=== PATIENT | female | born 1980 | race American Indian/Alaskan Native ===

== ENCOUNTER 2016-12-01 10:54 | Inpatient (IN) | payer OTHER ==
[~2016-12-01] VITALS: Ht 172.7 cm; Wt 126.9 kg
[2016-12-01] MEDS ORDERED: ACETAMINOPHEN 325 MG TABLET ONE (12:21)
[2016-12-01] MEDS ORDERED: KETOROLAC 30 MG/1 ML ONE (12:21)
[2016-12-01] MEDS ORDERED: SODIUM CHLORIDE FLUSH 10ML SYR IVF ONE (12:30)
[2016-12-01] MEDS ORDERED: KETOROLAC 30 MG/1 ML IVPush ONE (12:30)
[2016-12-01] MEDS ORDERED: ACETAMINOPHEN 325 MG TABLET PO ONE (12:30)
[2016-12-01] MEDS ORDERED: SODIUM CHLORIDE 0.9% 1,000ML IVBOLUS ONE (12:30)
[2016-12-01 12:58] LABS: HEMOGLOBIN 12.6 g/dL (11.7-16.4)
[2016-12-01 13:11] LABS: BLOOD UREA NITROGEN 9 mg/dL (7-18)
[2016-12-01 13:16] LABS: IS PT STATUS REG ER OR PRE ER? YES
[2016-12-01 13:20] LABS: DIFF TOTAL CELLS COUNTED 100 CELL DIFF
[2016-12-01 13:21] LABS: VERIFY COUNTS? YES
[2016-12-01] MEDS ORDERED: OMNIPAQUE 350 MG/ML, 100ML BOTTLE ONE (14:01)
[2016-12-01] MEDS ORDERED: VANCOMYCIN PMX 1GM/200ML 200 ML IV ONE (15:00)
[2016-12-01] MEDS ORDERED: CEFTRIAXONE PMX 1GM/50ML 50 ML IV ONE (15:00)
[2016-12-01] MEDS ORDERED: CEFTRIAXONE PMX 1GM/50ML 50 ML ONE (15:19)
[2016-12-01] MEDS: SODIUM CHLORIDE 0.9% 1,000 ML IV SCH (16:01)
[2016-12-01] MEDS ORDERED: GUAIFENESIN/DM 200-20MG, 10ML UDC PO PRN (16:30)
[2016-12-01] MEDS ORDERED: LABETALOL 5MG/ML, 20ML IV PRN (16:30)
[2016-12-01] MEDS: ENOXAPARIN 40 MG/0.4 ML SQ SCH (16:30)
[2016-12-01] MEDS ORDERED: ONDANSETRON ODT 4 MG PO PRN (16:30)
[2016-12-01 16:35] VITALS: BP 116/77
[2016-12-01 17:19] LABS: IS PT STATUS REG ER OR PRE ER? NO
[2016-12-01] MEDS: HYDROcodone/APAP 5/325 TABLET PO PRN ×2 (17:40→21:43)
[2016-12-01 18:05] LABS: RAPID INFLUENZA A Negative (Negative); RAPID INFLUENZA B Negative (Negative)
[2016-12-01 18:17] LABS: HIV 1&2 ANTIBODY SCREEN Nonreactive (Nonreactive); HIV-1 p24 ANTIGEN Nonreactive (Nonreactive)
[2016-12-01 19:11] VITALS: BP 106/68
[2016-12-01] MEDS: PANTOPRAZOLE 40 MG IV IVP SCH (21:12)
[2016-12-01] MEDS: DOXYCYCLINE 100MG TABLET PO SCH (21:12)
[2016-12-01 22:54] LABS: IS PT STATUS REG ER OR PRE ER? NO
[2016-12-02] MEDS: SODIUM CHLORIDE 0.9% 1,000 ML IV SCH ×2 (02:07→18:30)
[2016-12-02 02:59] VITALS: BP 96/50
[2016-12-02 05:11] LABS: HEMOGLOBIN 11.7 g/dL (11.7-16.4)
[2016-12-02 05:16] LABS: ASPARTATE AMINO TRANSFERASE 8 U/L (15-37); BLOOD UREA NITROGEN 12 mg/dL (7-18)
[2016-12-02 06:14] LABS: DIFF TOTAL CELLS COUNTED 100 CELL DIFF
[2016-12-02 07:42] VITALS: BP 100/66
[2016-12-02 07:59] LABS: VERIFY COUNTS? YES
[2016-12-02] MEDS: CEFTRIAXONE PMX 2GM/50ML 50 ML IV SCH (08:27)
[2016-12-02] MEDS: PANTOPRAZOLE 40 MG IV IVP SCH ×2 (08:27→20:45)
[2016-12-02] MEDS: HYDROcodone/APAP 5/325 TABLET PO PRN ×3 (08:27→22:41)
[2016-12-02] MEDS ORDERED: POTASSIUM CHLORIDE 20 MEQ TAB.ER.PRT PO ONE (08:30)
[2016-12-02] MEDS: ONDANSETRON 2MG/ML, 2ML IVP PRN ×2 (10:09→22:22)
[2016-12-02] MEDS: DOXYCYCLINE 100MG TABLET PO SCH ×2 (10:10→20:45)
[2016-12-02 16:20] VITALS: BP 110/65
[2016-12-02] MEDS: ENOXAPARIN 40 MG/0.4 ML SQ SCH (18:31)
[2016-12-02 20:10] VITALS: BP 120/64
[2016-12-03 01:36] VITALS: BP 106/65
[2016-12-03] MEDS: SODIUM CHLORIDE 0.9% 1,000 ML IV SCH ×2 (02:59→18:20)
[2016-12-03] MEDS: HYDROcodone/APAP 5/325 TABLET PO PRN ×2 (02:59→18:20)
[2016-12-03 06:18] LABS: HEMOGLOBIN 10.9 g/dL (11.7-16.4)
[2016-12-03 06:33] LABS: ASPARTATE AMINO TRANSFERASE 7 U/L (15-37); BLOOD UREA NITROGEN 7 mg/dL (7-18)
[2016-12-03 06:39] VITALS: BP 110/70
[2016-12-03 06:56] LABS: DIFF TOTAL CELLS COUNTED 100 CELL DIFF
[2016-12-03 06:57] LABS: VERIFY COUNTS? YES
[2016-12-03] MEDS ORDERED: FENTANYL PF 100 MCG/2ML ONE (08:07)
[2016-12-03] MEDS ORDERED: MIDAZOLAM 1 MG/ML, 5ML ONE ×2 (08:08)
[2016-12-03] MEDS: PANTOPRAZOLE 40 MG IV IVP SCH ×2 (08:10→21:40)
[2016-12-03] MEDS: CEFTRIAXONE PMX 2GM/50ML 50 ML IV SCH (08:11)
[2016-12-03] MEDS ORDERED: LIDOCAINE 2%, 20ML ONE (10:30)
[2016-12-03] MEDS ORDERED: LIDOCAINE GEL 2%, 5ML ONE (10:30)
[2016-12-03 10:59] VITALS: BP 151/93
[2016-12-03 12:01] VITALS: BP 143/88
[2016-12-03 12:45] VITALS: BP 142/87
[2016-12-03] MEDS: ONDANSETRON 2MG/ML, 2ML IVP PRN (13:24)
[2016-12-03] MEDS: DOXYCYCLINE 100MG TABLET PO SCH ×2 (14:21→21:40)
[2016-12-03] MEDS: ENOXAPARIN 40 MG/0.4 ML SQ SCH (16:30)
[2016-12-03 19:33] VITALS: BP 125/73
[2016-12-04 01:50] VITALS: BP 119/79
[2016-12-04] MEDS: SODIUM CHLORIDE 0.9% 1,000 ML IV SCH ×3 (02:00→17:37)
[2016-12-04] MEDS: ACETAMINOPHEN 325 MG TABLET PO PRN ×2 (02:08→08:49)
[2016-12-04 06:42] VITALS: BP 150/90
[2016-12-04] MEDS: PANTOPRAZOLE 40 MG IV IVP SCH ×2 (08:48→20:49)
[2016-12-04] MEDS: DOXYCYCLINE 100MG TABLET PO SCH ×2 (08:48→20:49)
[2016-12-04] MEDS: CEFTRIAXONE PMX 2GM/50ML 50 ML IV SCH (08:49)
[2016-12-04] MEDS: BUTALB/APAP/CAFFEINE 50MG/325MG/40MG PO PRN ×2 (11:50→18:05)
[2016-12-04 13:44] VITALS: BP 135/78
[2016-12-04] MEDS: ENOXAPARIN 40 MG/0.4 ML SQ SCH (17:38)
[2016-12-04] MEDS: PANTOPROZOLE 40MG TABLET PO SCH (17:43)
[2016-12-04 19:15] VITALS: BP 149/91
[2016-12-04] MEDS: HYDROcodone/APAP 5/325 TABLET PO PRN (19:19)
[2016-12-05 02:20] VITALS: BP 135/83
[2016-12-05] MEDS: SODIUM CHLORIDE 0.9% 1,000 ML IV SCH (03:13)
[2016-12-05 05:33] LABS: HEMOGLOBIN 10.9 g/dL (11.7-16.4)
[2016-12-05 05:41] LABS: BLOOD UREA NITROGEN 3 mg/dL (7-18)
[2016-12-05 05:45] LABS: ASPARTATE AMINO TRANSFERASE 12 U/L (15-37)
[2016-12-05 07:22] VITALS: BP 137/83
[2016-12-05] MEDS ORDERED: POTASSIUM CHLORIDE 20 MEQ PACKET PO ONE (08:00)
[2016-12-05] MEDS: PANTOPRAZOLE 40 MG IV IVP SCH (08:36)
[2016-12-05] MEDS: DOXYCYCLINE 100MG TABLET PO SCH (08:47)
[2016-12-05] MEDS: PANTOPROZOLE 40MG TABLET PO SCH (08:47)
[2016-12-05] MEDS: CEFTRIAXONE PMX 2GM/50ML 50 ML IV SCH (08:48)
[2016-12-05] MEDS ORDERED: ACET325T14 PO (10:01)
[2016-12-05] MEDS ORDERED: CEFD300C2 PO (10:06)
[2016-12-05] MEDS ORDERED: DOXY100T PO (10:06)
[2016-12-05] MEDS ORDERED: MOME13HF2 INH (10:08)
[2016-12-05] MEDS ORDERED: ALBU8.5H3 INH (10:08)
[2016-12-05] MEDS ORDERED: POTASSIUM CHLORIDE 20 MEQ TAB.ER.PRT PO ONE (11:00)
[2016-12-05] MEDS: BUTALB/APAP/CAFFEINE 50MG/325MG/40MG PO PRN (11:17)
== END 2016-12-05 14:00 | disposition home or self-care (01) | DRG 853 ==
LOC: ED 14:36 → EDIP 14:40 → 4WST 15:41
PROVIDERS: ADMIT Internal Medicine; ATTEND Internal Medicine
PROC: 0BBC8ZX Excision of Right Upper Lung Lobe, Via Natural or Artificial Opening Endoscopic, Diagnostic (ICD-10-PCS; principal; 2016-12-03)
DX: A41.9 Sepsis, unspecified organism (principal); J96.01 Acute respiratory failure with hypoxia; J18.9 Pneumonia, unspecified organism; E43 Unspecified severe protein-calorie malnutrition; E87.1 Hypo-osmolality and hyponatremia; Z68.41 Body mass index [BMI] 40.0-44.9, adult; C34.11 Malignant neoplasm of upper lobe, right bronchus or lung; E78.5 Hyperlipidemia, unspecified; E87.6 Hypokalemia; F17.210 Nicotine dependence, cigarettes, uncomplicated; E66.01 Morbid (severe) obesity due to excess calories; R73.9 Hyperglycemia, unspecified; I10 Essential (primary) hypertension; D64.9 Anemia, unspecified; J45.909 Unspecified asthma, uncomplicated; Z82.49 Family history of ischemic heart disease and other diseases of the circulatory system; Z83.3 Family history of diabetes mellitus; Z87.01 Personal history of pneumonia (recurrent)
CPT/HCPCS: 31622; 31623; 31624; 31628; 36415; 71020; 71275; 80048; 80053; 80076; 82040; 83605; 83615; 83690; 83735; 83880; 84100; 84145; 84439; 84443; 84484; 85025; 85379; 85610; 86703; 87040; 87081; 87400; 87880; 87899; 88104; 88112; 88305; 93005; J0696; J1650; J1885; J2250; J2405; J3010; J3370; J3490; Q9967; C9113; G0435; J7030

== ENCOUNTER 2017-01-31 22:34 | Inpatient (IN) | payer SELFPAY ==
[~2017-01-31] VITALS: Ht 172.7 cm; Wt 113.6 kg
[~2017-01-31 22:34] MED LIST: ACET325T14 PO; ALBU8.5H3 INH; CEFD300C37 PO; DOXY100T PO; MOME13HF2 INH
[2017-01-31] MEDS ORDERED: SODIUM CHLORIDE 0.9% 1,000ML IVBOLUS ONE (23:00)
[2017-01-31] MEDS ORDERED: ONDANSETRON 2MG/ML, 2ML IVP ONE (23:00)
[2017-01-31] MEDS ORDERED: MORPHINE SULFATE 4 MG/ML, 1ML IVPush PRN (23:00)
[2017-01-31] MEDS ORDERED: SODIUM CHLORIDE FLUSH 10ML SYR IVF ONE (23:00)
[2017-01-31] MEDS ORDERED: ONDANSETRON 2MG/ML, 2ML ONE (23:26)
[2017-01-31] MEDS ORDERED: MORPHINE SULFATE 4 MG/ML, 1ML ONE (23:26)
[2017-01-31 23:45] LABS: BLOOD UREA NITROGEN 10 mg/dL (7-18)
[2017-02-01] MEDS ORDERED: CEFTRIAXONE PMX 1GM/50ML 50 ML ONE (00:51)
[2017-02-01] MEDS ORDERED: SODIUM CHLORIDE 0.9% 1,000ML IVBOLUS ONE (01:00)
[2017-02-01] MEDS ORDERED: CEFTRIAXONE PMX 1GM/50ML 50 ML IV ONE (01:00)
[2017-02-01] MEDS ORDERED: VANCOMYCIN PER PHARMACY IV ONE (01:00)
[2017-02-01] MEDS ORDERED: VANCOMYCIN 2,000 MG in SODIUM CHLORIDE 0.9% 500 ML IV ONE (01:00)
[2017-02-01] MEDS ORDERED: OMNIPAQUE 350 MG/ML, 100ML BOTTLE ONE (01:10)
[2017-02-01] MEDS ORDERED: AZITHROMYCIN 500 MG in SODIUM CHLORIDE 0.9% 250 ML IV ONE (01:30)
[2017-02-01] MEDS ORDERED: SODIUM CHLORIDE 0.9% 1,000 ML IV ONE (01:42)
[2017-02-01] MEDS ORDERED: ONDANSETRON 2MG/ML, 2ML IVPush PRN (03:30)
[2017-02-01] MEDS ORDERED: LORazepam 2 MG/ML, 1ML IVPush PRN (03:30)
[2017-02-01] MEDS ORDERED: POTASSIUM CHLORIDE 20 MEQ TAB.ER.PRT PO ONE (03:30)
[2017-02-01] MEDS ORDERED: morphine SULFATE 10 MG/ML, 1ML IVPush PRN (03:30)
[2017-02-01] MEDS ORDERED: PHARMACOKINETIC MONITORING MC PRN (03:30)
[2017-02-01] MEDS ORDERED: NICOTINE 14MG/24 HR PATCH.TD24 TD SCH (03:30)
[2017-02-01] MEDS ORDERED: HYDROcodone/APAP 5/325 TABLET PO PRN (03:30)
[2017-02-01] MEDS ORDERED: VANCOMYCIN PER PHARMACY MC PRN (03:30)
[2017-02-01] MEDS ORDERED: ENOXAPARIN 40 MG/0.4 ML SQ SCH (03:30)
[2017-02-01] MEDS: NS + 20MEQ KCL 1,000 ML IV SCH ×3 (04:11→23:06)
[2017-02-01] MEDS: PIPERACILLIN/TAZO/PMX 3.375GM 50 ML IV SCH ×3 (04:11→20:00)
[2017-02-01] MEDS: GUAIFENESIN 200 MG TABLET PO SCH ×3 (06:00→16:00)
[2017-02-01] MEDS: SENNA/DOCUSATE TABLET PO SCH (09:00)
[2017-02-01] MEDS: FAMOTIDINE 20 MG TABLET PO SCH ×2 (09:00→21:00)
[2017-02-01] MEDS: VANCOMYCIN 2,000 MG in SODIUM CHLORIDE 0.9% 500 ML IV SCH (14:00)
[2017-02-02] MEDS: VANCOMYCIN 2,000 MG in SODIUM CHLORIDE 0.9% 500 ML IV SCH ×2 (02:00→14:00)
[2017-02-02] MEDS ORDERED: ALBUTEROL/IPRATROPIUM 2.5MG/0.5MG, 3 ML ONE (03:51)
[2017-02-02 07:06] VITALS: BP 114/57
[2017-02-02] MEDS: GUAIFENESIN 200 MG TABLET PO SCH (09:00)
[2017-02-02] MEDS: FAMOTIDINE 20 MG TABLET PO SCH (09:00)
[2017-02-02] MEDS: SENNA/DOCUSATE TABLET PO SCH (09:00)
[2017-02-02] MEDS: NS + 20MEQ KCL 1,000 ML IV SCH (11:40)
[2017-02-02] MEDS: PIPERACILLIN/TAZO/PMX 3.375GM 50 ML IV SCH (13:00)
[2017-02-02 13:30] VITALS: BP 133/89
[2017-02-02] MEDS ORDERED: ALBUTEROL/IPRATROPIUM 2.5MG/0.5MG, 3 ML NPPB PRN (14:30)
[2017-02-02] MEDS ORDERED: ACETAMINOPHEN 325 MG TABLET PO PRN (14:30)
[2017-02-02] MEDS ORDERED: PIPERACILLIN/TAZO/PMX 3.375GM 50 ML ONE (20:21)
== END 2017-02-02 16:45 | disposition left against medical advice (07) | DRG 871 ==
LOC: ED 02-01 00:49 → EDIP 02-01 01:43 → 4EST 02-01 02:45 → UNDODISIN 02-02 16:40 → EDIP 02-02 16:45
PROVIDERS: ADMIT Internal Medicine; ATTEND Internal Medicine
DX: A41.9 Sepsis, unspecified organism (principal); J18.9 Pneumonia, unspecified organism
CPT/HCPCS: 36415; 71020; 71275; 80048; 82040; 83036; 83605; 84145; 85025; 85651; 86140; 87040; 93005; 94640; J0696; J2405; J2543; J3370; J3480; Q9967; J7030; J7040

== ENCOUNTER 2017-02-02 18:22 | Inpatient (IN) | payer OTHER ==
[~2017-02-02] VITALS: Ht 172.7 cm; Wt 126.0 kg
[2017-02-02] MEDS ORDERED: SODIUM CHLORIDE 0.9% 1,000 ML IV ONE (18:39)
[2017-02-02] MEDS ORDERED: SODIUM CHLORIDE 0.9% 1,000ML IVBOLUS ONE (19:00)
[2017-02-02] MEDS ORDERED: ACETAMINOPHEN 500 MG TABLET PO ONE (19:00)
[2017-02-02] MEDS ORDERED: ACETAMINOPHEN 500 MG TABLET ONE (19:09)
[2017-02-02 19:21] LABS: BLOOD UREA NITROGEN 6 mg/dL (7-18)
[2017-02-02] MEDS ORDERED: VANCOMYCIN 2,000 MG in SODIUM CHLORIDE 0.9% 500 ML IV ONE (20:00)
[2017-02-02] MEDS ORDERED: VANCOMYCIN PER PHARMACY MC PRN ×2 (20:00→21:00)
[2017-02-02] MEDS ORDERED: PIPERACILLIN/TAZO 3.375 GM in SODIUM CHLORIDE 0.9% 50 ML IV ONE (20:00)
[2017-02-02] MEDS ORDERED: DOCUSATE 100 MG CAPSULE PO PRN (21:00)
[2017-02-02] MEDS ORDERED: POLYETHYLENE GLYCOL 17 GM PACKET PO PRN (21:00)
[2017-02-02] MEDS ORDERED: TRAZODONE 50MG TABLET PO PRN (21:00)
[2017-02-02] MEDS ORDERED: BISACODYL 10 MG SUPP PR PRN (21:00)
[2017-02-02] MEDS ORDERED: LABETALOL 5MG/ML, 20ML IVPush PRN (21:00)
[2017-02-02] MEDS ORDERED: ACETAMINOPHEN 325 MG TABLET PO PRN (21:00)
[2017-02-02] MEDS ORDERED: ONDANSETRON ODT 4 MG PO PRN (21:00)
[2017-02-02] MEDS ORDERED: ALBUTEROL SULFATE 2.5 MG/3 ML NPPB PRN (22:00)
[2017-02-02 22:40] VITALS: BP 121/72
[2017-02-02] MEDS: SODIUM CHLORIDE 0.9% 1,000 ML IV SCH (23:16)
[2017-02-02] MEDS: ENOXAPARIN 40 MG/0.4 ML SQ SCH (23:22)
[2017-02-02] MEDS: NICOTINE 14MG/24 HR PATCH.TD24 TD SCH (23:23)
[2017-02-02] MEDS ORDERED: PHARMACOKINETIC MONITORING MC PRN (23:30)
[2017-02-03 02:00] VITALS: BP 147/91
[2017-02-03] MEDS: PIPERACILLIN/TAZO/PMX 3.375GM 50 ML IV SCH ×2 (02:46→08:38)
[2017-02-03] MEDS: SODIUM CHLORIDE 0.9% 1,000 ML IV SCH ×3 (06:03→20:49)
[2017-02-03 07:08] LABS: BLOOD UREA NITROGEN 4 mg/dL (7-18)
[2017-02-03 07:12] LABS: ASPARTATE AMINO TRANSFERASE 9 U/L (15-37)
[2017-02-03] MEDS: THIAMINE 100MG TABLET PO SCH (08:38)
[2017-02-03] MEDS: FOLIC ACID 1 MG TABLET PO SCH (08:38)
[2017-02-03 09:00] VITALS: BP 128/76
[2017-02-03] MEDS ORDERED: VANCOMYCIN 2,300 MG in SODIUM CHLORIDE 0.9% 500 ML IV SCH (09:00)
[2017-02-03 14:11] VITALS: BP 121/72
[2017-02-03 14:29] LABS: DAU SCREEN DISCLAIMER
[2017-02-03] MEDS: DOXYCYCLINE 100 MG in DEXTROSE 5% 250 ML IV SCH (14:50)
[2017-02-03] MEDS ORDERED: HYDROcodone/APAP 5/325 TABLET PO PRN (16:30)
[2017-02-03 19:13] VITALS: BP 121/78
[2017-02-03] MEDS: NICOTINE 14MG/24 HR PATCH.TD24 TD SCH (20:49)
[2017-02-03] MEDS: ENOXAPARIN 40 MG/0.4 ML SQ SCH (20:49)
[2017-02-04 01:02] VITALS: BP 134/82
[2017-02-04] MEDS: DOXYCYCLINE 100 MG in DEXTROSE 5% 250 ML IV SCH (02:18)
[2017-02-04] MEDS: SODIUM CHLORIDE 0.9% 1,000 ML IV SCH ×2 (02:18→07:56)
[2017-02-04] MEDS ORDERED: CEFTRIAXONE PMX 2GM/50ML 50 ML IV SCH (07:00)
[2017-02-04 07:01] LABS: BLOOD UREA NITROGEN 2 mg/dL (7-18)
[2017-02-04 07:32] VITALS: BP 125/66
[2017-02-04] MEDS: THIAMINE 100MG TABLET PO SCH (09:02)
[2017-02-04] MEDS: FOLIC ACID 1 MG TABLET PO SCH (09:02)
[2017-02-04] MEDS ORDERED: SODIUM CHLORIDE 0.9% 1,000 ML IV SCH ×2 (09:15→20:50)
[2017-02-04] MEDS ORDERED: DOXY100T PO (12:51)
[2017-02-04] MEDS ORDERED: CEFD300C37 PO (12:51)
== END 2017-02-04 13:50 | disposition home or self-care (01) | DRG 871 ==
LOC: ED 20:00 → EDIP 20:12 → 4WST 22:51
PROVIDERS: ADMIT Internal Medicine; ATTEND Internal Medicine
DX: A41.9 Sepsis, unspecified organism (principal); J96.00 Acute respiratory failure, unspecified whether with hypoxia or hypercapnia; J18.9 Pneumonia, unspecified organism; E87.1 Hypo-osmolality and hyponatremia; Z68.41 Body mass index [BMI] 40.0-44.9, adult; E88.09 Other disorders of plasma-protein metabolism, not elsewhere classified; E66.9 Obesity, unspecified; F10.10 Alcohol abuse, uncomplicated; F17.210 Nicotine dependence, cigarettes, uncomplicated; I10 Essential (primary) hypertension; R65.20 Severe sepsis without septic shock; Z82.49 Family history of ischemic heart disease and other diseases of the circulatory system; Z91.14 Patient's other noncompliance with medication regimen; Z80.9 Family history of malignant neoplasm, unspecified; Z87.01 Personal history of pneumonia (recurrent)
CPT/HCPCS: 36415; 71010; 80048; 80053; 80307; 82040; 83605; 83735; 84145; 84443; 85025; 87040; 93005; 96365; J0696; J2543; J3370; J7060; J7030; J7040

== ENCOUNTER → 2017-05-27 | Outpatient (CLI) | payer MEDICAID, OTHER ==
[~2017-05-27] MED LIST changes: -ALBU8.5H3 INH; +ALBU8.5H8 INH
== END | disposition home or self-care (01) ==
LOC: RAD 14:08
PROVIDERS: ATTEND Internal Medicine Critical Care Medicine
DX: R91.8 Other nonspecific abnormal finding of lung field (principal); M25.78 Osteophyte, vertebrae
CPT/HCPCS: 71250

== ENCOUNTER 2017-06-23 16:52 | Emergency (ER) | payer MEDICAID ==
[~2017-06-23] VITALS: Ht 172.7 cm; Wt 120.3 kg
[2017-06-23 17:08] VITALS: BP 140/90
== END 2017-06-23 19:02 | disposition home or self-care (01) ==
LOC: ED 18:30
DX: R05 Cough (principal); I10 Essential (primary) hypertension
CPT/HCPCS: 71020; 93005; 99284

== ENCOUNTER 2017-06-27 02:55 | Inpatient (IN) | payer MEDICAID ==
[~2017-06-27] VITALS: Ht 172.7 cm; Wt 106.6 kg
[2017-06-27] MEDS ORDERED: ONDANSETRON 2MG/ML, 2ML IVP ONE (03:30)
[2017-06-27] MEDS ORDERED: SODIUM CHLORIDE 0.9% 1,000ML IVBOLUS ONE ×2 (03:30→05:00)
[2017-06-27] MEDS ORDERED: SODIUM CHLORIDE FLUSH 10ML SYR IVF ONE (03:30)
[2017-06-27] MEDS ORDERED: ONDANSETRON 2MG/ML, 2ML ONE (03:38)
[2017-06-27 03:48] LABS: HEMATOCRIT 41.1 % (34.6-47.8); HEMOGLOBIN 13.6 g/dL (11.7-16.4); WHITE BLOOD COUNT 15.9 x10^3/uL (3.4-10)
[2017-06-27 04:00] LABS: BLOOD UREA NITROGEN 15 mg/dL (7-18)
[2017-06-27] MEDS ORDERED: CEFTRIAXONE PMX 1GM/50ML 50 ML ONE (04:10)
[2017-06-27] MEDS ORDERED: morphine SULFATE 10 MG/ML, 1ML IV ONE (04:30)
[2017-06-27] MEDS ORDERED: AZITHROMYCIN 500 MG in SODIUM CHLORIDE 0.9% 250 ML IV ONE (04:30)
[2017-06-27] MEDS ORDERED: CEFTRIAXONE PMX 1GM/50ML 50 ML IV ONE (04:30)
[2017-06-27] MEDS ORDERED: morphine SULFATE 10 MG/ML, 1ML ONE (04:37)
[2017-06-27] MEDS ORDERED: GLUCAGON 1 MG IM PRN (05:00)
[2017-06-27] MEDS ORDERED: SODIUM CHLORIDE 0.9% 1,000ML IV ONE (05:00)
[2017-06-27] MEDS ORDERED: VANCOMYCIN PER PHARMACY IV SCH (05:00)
[2017-06-27] MEDS ORDERED: PHARMACY MAY ADJ FOR RENAL FX MC SCH (05:00)
[2017-06-27] MEDS ORDERED: ONDANSETRON ODT 4 MG PO PRN (05:00)
[2017-06-27] MEDS ORDERED: DEXTROSE 50%, 50ML SYRINGE IVPush PRN (05:00)
[2017-06-27] MEDS: SODIUM CHLORIDE 0.9% 1,000 ML IV SCH ×3 (05:00→18:31)
[2017-06-27] MEDS ORDERED: DEXTROSE 4 GM TAB.CHEW PO PRN (05:00)
[2017-06-27] MEDS ORDERED: ACETAMINOPHEN 325 MG TABLET PO PRN (05:00)
[2017-06-27 05:25] LABS: ABG COLLECTION SITE LEFT RADIAL; COLLATERAL CIRCULATION TESTING NORMAL
[2017-06-27] MEDS: ALBUTEROL SULFATE INH SCH ×4 (05:53→21:00)
[2017-06-27] MEDS ORDERED: PHARMACOKINETIC CONSULTATION MC ONE (06:00)
[2017-06-27] MEDS ORDERED: PHARMACOKINETIC MONITORING MC PRN (06:00)
[2017-06-27] MEDS: PIPERACILLIN/TAZO/PMX 4.5GM 100 ML IVPB SCH ×2 (06:06→13:44)
[2017-06-27] MEDS ORDERED: OMNIPAQUE 350 MG/ML, 100ML BOTTLE ONE (06:18)
[2017-06-27 06:19] VITALS: BP 143/99
[2017-06-27] MEDS ORDERED: ALBUTEROL SULFATE 2.5 MG/3 ML ONE (06:27)
[2017-06-27] MEDS: ALBUTEROL SULFATE 2.5 MG/3 ML NPPB SCH ×4 (06:42→20:00)
[2017-06-27 06:50] VITALS: BP 125/74
[2017-06-27] MEDS: FLUTICASONE/VILANTEROL 100-25MCG/INH INH SCH (09:00)
[2017-06-27] MEDS: ENOXAPARIN 40 MG/0.4 ML SQ SCH (10:32)
[2017-06-27] MEDS: morphine SULFATE 10 MG/ML, 1ML IV PRN (10:33)
[2017-06-27] MEDS: SODIUM CHLORIDE FLUSH 10ML SYR IVF SCH ×2 (10:33→21:17)
[2017-06-27] MEDS ORDERED: KETOROLAC 30 MG/1 ML IM ONE (11:30)
[2017-06-27] MEDS ORDERED: KETOROLAC 30 MG/1 ML IVPush ONE (14:00)
[2017-06-27] MEDS: VANCOMYCIN 2,200 MG in SODIUM CHLORIDE 0.9% 500 ML IV SCH ×2 (14:25→21:17)
[2017-06-27 14:50] VITALS: BP 114/64
[2017-06-27] MEDS ORDERED: NICOTINE 14MG/24 HR PATCH.TD24 TD ONE (17:30)
[2017-06-27 19:33] VITALS: BP 118/67
[2017-06-27] MEDS: KETOROLAC 30 MG/1 ML IVPush PRN (20:01)
[2017-06-27] MEDS: PIPERACILLIN/TAZO 4.5 GM in SODIUM CHLORIDE 0.9% 100 ML IVPB SCH (20:11)
[2017-06-27] MEDS: NICOTINE 14MG/24 HR PATCH.TD24 TD SCH (21:17)
[2017-06-27] MEDS: GUAIFENESIN ER 600 MG TABLET PO SCH (21:17)
[2017-06-28] MEDS: morphine SULFATE 10 MG/ML, 1ML IV PRN ×2 (00:47→16:29)
[2017-06-28] MEDS: PIPERACILLIN/TAZO 4.5 GM in SODIUM CHLORIDE 0.9% 100 ML IVPB SCH ×4 (02:11→20:37)
[2017-06-28 03:52] VITALS: BP 136/82
[2017-06-28] MEDS: ALBUTEROL SULFATE INH SCH ×4 (05:26→21:00)
[2017-06-28] MEDS: SODIUM CHLORIDE 0.9% 1,000 ML IV SCH ×2 (05:26→16:32)
[2017-06-28] MEDS: KETOROLAC 30 MG/1 ML IVPush PRN (05:33)
[2017-06-28 05:46] LABS: BLOOD UREA NITROGEN 7 mg/dL (7-18)
[2017-06-28 05:47] LABS: HEMATOCRIT 34.8 % (34.6-47.8); HEMOGLOBIN 11.5 g/dL (11.7-16.4); WHITE BLOOD COUNT 11.6 x10^3/uL (3.4-10)
[2017-06-28 06:50] VITALS: BP 131/87
[2017-06-28] MEDS: ALBUTEROL SULFATE 2.5 MG/3 ML NPPB SCH ×4 (07:00→20:00)
[2017-06-28] MEDS: ENOXAPARIN 40 MG/0.4 ML SQ SCH (07:33)
[2017-06-28] MEDS ORDERED: DIPHENHYDRAMINE 50 MG/ML, 1ML IVPush ONE (08:00)
[2017-06-28] MEDS ORDERED: PROCHLORPERAZINE 5 MG/ML, 2ML IVPush ONE (08:00)
[2017-06-28] MEDS ORDERED: SODIUM CHLORIDE 0.9% 1,000ML IVBOLUS ONE (08:00)
[2017-06-28] MEDS: GUAIFENESIN ER 600 MG TABLET PO SCH ×2 (08:24→21:13)
[2017-06-28] MEDS: FLUTICASONE/VILANTEROL 100-25MCG/INH INH SCH ×2 (08:27→09:00)
[2017-06-28] MEDS: SODIUM CHLORIDE FLUSH 10ML SYR IVF SCH ×2 (08:48→21:13)
[2017-06-28] MEDS: VANCOMYCIN 2,200 MG in SODIUM CHLORIDE 0.9% 500 ML IV SCH ×2 (10:29→22:34)
[2017-06-28] MEDS ORDERED: FENTANYL PF 100 MCG/2ML ONE (10:52)
[2017-06-28] MEDS ORDERED: NALOXONE 1 MG/ML, 2ML ONE (10:52)
[2017-06-28] MEDS ORDERED: LIDOCAINE 1%, 20ML ONE (10:52)
[2017-06-28] MEDS ORDERED: FLUMAZENIL 0.1 MG/1 ML, 5ML ONE (10:52)
[2017-06-28] MEDS ORDERED: MIDAZOLAM 1 MG/ML, 5ML ONE ×2 (10:52)
[2017-06-28 14:03] VITALS: BP 122/83
[2017-06-28 19:00] VITALS: BP 134/84
[2017-06-28] MEDS: NICOTINE 14MG/24 HR PATCH.TD24 TD SCH (21:13)
[2017-06-29] MEDS: SODIUM CHLORIDE 0.9% 1,000 ML IV SCH ×2 (00:34→08:13)
[2017-06-29 01:32] VITALS: BP 132/85
[2017-06-29] MEDS: PIPERACILLIN/TAZO 4.5 GM in SODIUM CHLORIDE 0.9% 100 ML IVPB SCH ×2 (01:51→08:13)
[2017-06-29] MEDS: ALBUTEROL SULFATE INH SCH (04:06)
[2017-06-29] MEDS: KETOROLAC 30 MG/1 ML IVPush PRN (04:13)
[2017-06-29] MEDS ORDERED: BUTALB/APAP/CAFFEINE 50MG/325MG/40MG PO PRN (05:30)
[2017-06-29 05:51] LABS: HEMATOCRIT 31.7 % (34.6-47.8); HEMOGLOBIN 10.5 g/dL (11.7-16.4); WHITE BLOOD COUNT 11.1 x10^3/uL (3.4-10)
[2017-06-29 06:25] LABS: BLOOD UREA NITROGEN 5 mg/dL (7-18)
[2017-06-29 07:34] VITALS: BP 135/81
[2017-06-29] MEDS: FLUTICASONE/VILANTEROL 100-25MCG/INH INH SCH (08:12)
[2017-06-29] MEDS: GUAIFENESIN ER 600 MG TABLET PO SCH (08:12)
[2017-06-29] MEDS: SODIUM CHLORIDE FLUSH 10ML SYR IVF SCH (08:14)
[2017-06-29] MEDS: ENOXAPARIN 40 MG/0.4 ML SQ SCH (08:14)
[2017-06-29] MEDS ORDERED: CEFD300C37 PO (08:21)
[2017-06-29] MEDS ORDERED: DOXY100T PO (08:21)
[2017-06-29] MEDS ORDERED: ONDA4TAB10 PO (08:21)
[2017-06-29] MEDS: ALBUTEROL SULFATE 2.5 MG/3 ML NPPB SCH (08:30)
== END 2017-06-29 11:13 | disposition home or self-care (01) | DRG 871 ==
LOC: ED 03:38 → EDIP 04:10 → 4WST 05:50 → DCLOUNGE 06-29 10:54
PROVIDERS: ADMIT Hospitalist; ATTEND Hospitalist
PROC: 0BBK3ZX Excision of Right Lung, Percutaneous Approach, Diagnostic (ICD-10-PCS; principal; 2017-06-28)
DX: A41.9 Sepsis, unspecified organism (principal); J15.9 Unspecified bacterial pneumonia; E87.1 Hypo-osmolality and hyponatremia; E66.9 Obesity, unspecified; E78.5 Hyperlipidemia, unspecified; F17.200 Nicotine dependence, unspecified, uncomplicated; I10 Essential (primary) hypertension; Z82.49 Family history of ischemic heart disease and other diseases of the circulatory system; Z83.3 Family history of diabetes mellitus; Z87.410 Personal history of cervical dysplasia; R91.8 Other nonspecific abnormal finding of lung field; Z68.35 Body mass index [BMI] 35.0-35.9, adult
CPT/HCPCS: 32405; 36415; 36600; 71010; 71275; 77012; 78582; 80048; 81001; 82040; 82533; 82803; 83605; 83735; 85025; 85610; 87040; 87070; 87086; 87205; 88305; 93005; 94640; 96365; 96375; 99156; 99157; J0696; J1650; J1885; J2250; J2405; J2543; J3010; J3370; J3490; J7613; Q9967; A9540; A9558; C9898; J0780; J1200; J2270; J2310; J7030; J7040

== ENCOUNTER → 2017-09-01 | Outpatient (CLI) | payer MEDICAID ==
[~2017-09-01] MED LIST changes: +ONDA4TAB10 PO
== END | disposition home or self-care (01) ==
LOC: CFH 14:00
PROVIDERS: ATTEND Nurse Practitioner Family
DX: R91.8 Other nonspecific abnormal finding of lung field (principal)
CPT/HCPCS: 71250

== ENCOUNTER → 2018-03-28 | Outpatient (CLI) | payer MEDICAID | END | disposition home or self-care (01) | LOC: CFH 16:00 | PROVIDERS: ATTEND Nurse Practitioner Family | DX: R91.8 Other nonspecific abnormal finding of lung field (principal); I10 Essential (primary) hypertension; Z87.891 Personal history of nicotine dependence | CPT/HCPCS: 71250 ==